=== PATIENT | female | born 1990 | race Caucasian/White ===

== ENCOUNTER 2018-10-27 14:44 | Day surgery (SDC) | payer BC ==
[2018-10-27 16:01] LABS: ABS Eosinophils 0.2 10^3/ul (0-0.6); ABS Lymphocytes 2.7 10^3/ul (1.0-4.8); ABS Monocytes 0.6 10^3/ul (0-0.8); ABS Neutrophils 3.7 10^3/ul (1.5-7.7); Eosinophil % 2.9 %; Hematocrit 33 % (35-47); Lymphocyte % 37.2 %; Mean Corpuscular HGB Conc 33 g/dL (31-36); Mean Corpuscular Hemoglobin 29 pg (27-31); Mean Corpuscular Volume 87 fL (80-97); Mean Platelet Volume 8.7 fL (7.4-10.4); Platelet Count 259 10^3/uL (150-450); Red Blood Count 3.79 10^6 /uL (3.70-4.87); Red Cell Distribution Width 13 % (10-15); White Blood Count 7.2 10^3/uL (3.5-10.8)
[2018-10-27 16:16] LABS: Activated Partial Thrombo Time 31.5 seconds (26.0-38.0); INR 0.95 (0.82-1.09)
[2018-10-27 16:19] LABS: Albumin 4.2 g/dL (3.2-5.2); Albumin/Globulin Ratio 1.6 (1-3); BUN/Creatinine Ratio 15.9 (8-20); C Reactive Protein 10.89 mg/L (<8.01); Calcium 9.2 mg/dL (8.6-10.3); EGFR African American 136.2 (>60); EGFR Non-African American 112.5 (>60); Globulin 2.7 g/dL (2-4); Potassium 3.6 mmol/L (3.5-5.0); Total Bilirubin 0.3 mg/dL (0.2-1.0); Total Protein 6.9 g/dL (6.4-8.9)
[2018-10-27 16:24] LABS: HCG Pregnancy 1296.99 mIU/mL
--- NOTE | 2018-10-27 21:48 | ED ---
GI/ HPI - HPI Summary HPI Summary: This pt is a 28 y/o female [facility] [place] [facility] since . Pt reports she thought she had started her period on 10/08/18 but has been bleeding since then. She has been changing her tampon a couple of times a day. Pt passed blood clots the size of her thumbnail 4 days ago. Pt went to see her airline reservation agent 3 days ago where she had blood work and an exam that resulted normal. She did NOT have a test while there. Pt then began to have severe lower abdominal pain 3 days ago that night. Pt describes lower abd pain as more right than left and feeling distended. She called her airline reservation agent again and was told to take a home test. Pt took a home test today that resulted positive. She has been feeling lightheadedness. Her last bowel movement was yesterday. Denies nausea, vomiting, diarrhea. LNMP: September 07, 2018 and notes she has been regular until this month. Denies control pills or IUD. Hx of ectopic on the right in 2013, pt was [address] Mcfadden, OB, removed part of her fallopian tube. - History of Current Complaint Chief Complaint: EDVaginalBleeding Time Seen by Provider: 10/27/18 21:37 Stated Complaint: BLEEDING PREG RIGHT SIDE PAIN Hx Obtained From: Patient Onset/Duration: Started Weeks Ago, Still Present Timing: Lasting Weeks Current Severity: Moderate Number of Pads per Day: 2 Pain Intensity: 2 Location of Pain: Other - lower abdominal Pain Characteristics: Sharp, Cramping, Aching Associated Signs and Symptoms: Positive: Lightheadedness, Abdominal Pain - lower. Negative: Nausea, Vomiting, Diarrhea Additional Signs & Symptoms: Positive: Vaginal Bleeding, Positive Test - today, First Day of Last Menstral Period - September 07 Aggravating Factor(s): Nothing Alleviating Factor(s): Nothing - Risk Factors Ectopic Risk Factor(s): Prior Ectopic - Allergy/Home Medications Allergies/Adverse Reactions: Allergies Allergy/AdvReac Type Severity Reaction Status Date / Time No Known Allergies Allergy Verified 10/27/18 14:50 PMH/Surg Hx/FS Hx/Imm Hx Endocrine/Hematology History: Denies: Hx Diabetes History: Reports: Other Problems/Disorders - ectopic in 2013 Infectious Disease History: No Infectious Disease History: Denies: Traveled Outside the [place] in Last 30 Days - Family History Known Family History: Negative: Cardiac Disease, Hypertension, Diabetes - Social History Alcohol Use: Rare Substance Use Type: Reports: None Smoking Status (MU): Never Smoked Tobacco Review of Systems Negative: Fever Gastrointestinal: Other - POSITIVE: abd distension Positive: Abdominal Pain. Negative: Vomiting, Diarrhea, Nausea Genitourinary: Other - POSITIVE: vaginal bleeding Neurological: Other - POSITIVE: lightheadedness All Other Systems Reviewed And Are Negative: Yes Physical Exam - Summary Physical Exam Summary: VITAL SIGNS: Reviewed. GENERAL: Patient is a well-developed and nourished female who is lying comfortable in the stretcher. Patient is not in any acute respiratory distress. HEAD AND FACE: No signs of trauma. No ecchymosis, hematomas or skull depressions. No sinus tenderness. EYES: PERRLA, EOMI x 2, No injected conjunctiva, no nystagmus. EARS: Hearing grossly intact. Ear canals and tympanic membranes are within normal limits. MOUTH: Oropharynx within normal limits. NECK: Supple, trachea is midline, no adenopathy, no JVD, no carotid bruit, no c- spine tenderness, neck with full ROM. CHEST: Symmetric, no tenderness at palpation LUNGS: Clear to auscultation bilaterally. No wheezing or crackles. CVS: Regular rate and rhythm, S1 and S2 present, no murmurs or gallops appreciated. ABDOMEN: Soft, mild left pelvic tenderness. No signs of distention. No rebound no guarding, and no masses palpated. Bowel sounds are normal. EXTREMITIES: FROM in all major joints, no edema, no cyanosis or clubbing. NEURO: Alert and oriented x 3. No acute neurological deficits. Speech is normal and follows commands. SKIN: Dry and warm Triage Information Reviewed: Yes Vital Signs On Initial Exam: Initial Vitals Temp Pulse Resp BP Pulse Ox 99.7 F 100 16 138/97 99 10/27/18 14:48 10/27/18 14:48 10/27/18 14:48 10/27/18 14:48 10/27/18 14:48 Vital Signs Reviewed: Yes Diagnostics - Vital Signs Vital Signs Temp Pulse Resp BP Pulse Ox 10/27/18 20:49 98.3 F 77 18 128/74 96 10/27/18 18:12 98.0 F 71 16 112/53 98 06/28/19 16:28 98.5 F 82 16 116/79 99 10/27/18 14:48 99.7 F 100 16 138/97 99 - Laboratory Lab Results: Lab Results 10/27/18 10/27/18 10/27/18 Range/Units 15:51 15:51 15:51 WBC 7.2 (3.5-10.8) 10^3/uL RBC 3.79 (3.70-4.87) 10^6 /uL Hgb 11.0 L (12.0-16.0) g/dL Hct 33 L (35-47) % MCV 87 (80-97) fL MCH 29 (27-31) pg MCHC 33 (31-36) g/dL RDW 13 (10-15) % Plt Count 259 (150-450) 10^3/uL MPV 8.7 (7.4-10.4) fL Neut % (Auto) 50.8 % Lymph % (Auto) 37.2 % Logan % (Auto) 8.6 % Eos % (Auto) 2.9 % Baso % (Auto) 0.5 % Absolute Neuts (auto) 3.7 (1.5-7.7) 10^3/ul Absolute Lymphs (auto) 2.7 (1.0-4.8) 10^3/ul Absolute Monos (auto) 0.6 (0-0.8) 10^3/ul Absolute Eos (auto) 0.2 (0-0.6) 10^3/ul Absolute Basos (auto) 0.0 (0-0.2) 10^3/ul Absolute Nucleated RBC 0.0 10^3/ul Nucleated RBC % 0.0 INR (Anticoag Therapy) (0.82-1.09) APTT (26.0-38.0) seconds Sodium 139 (135-145) mmol/L Potassium 3.6 (3.5-5.0) mmol/L Chloride 107 (101-111) mmol/L Carbon Dioxide 26 (22-32) mmol/L Anion Gap 6 (2-11) mmol/L BUN 10 (6-24) mg/dL Creatinine 0.63 (0.51-0.95) mg/dL Est GFR ( Amer) 136.2 (>60) Est GFR (Non-Af Amer) 112.5 (>60) BUN/Creatinine Ratio 15.9 (8-20) Glucose 94 (70-100) mg/dL Lactic Acid 0.8 (0.5-2.0) mmol/L Calcium 9.2 (8.6-10.3) mg/dL Magnesium 2.0 (1.9-2.7) mg/dL Total Bilirubin 0.30 (0.2-1.0) mg/dL AST 14 (13-39) U/L ALT 10 (7-52) U/L Alkaline Phosphatase 56 (34-104) U/L C-Reactive Protein 10.89 H (<8.01) mg/L Total Protein 6.9 (6.4-8.9) g/dL Albumin 4.2 (3.2-5.2) g/dL Globulin 2.7 (2-4) g/dL Albumin/Globulin Ratio 1.6 (1-3) Amylase 36 (29-103) U/L Lipase 12 (11.0-82.0) U/L Beta HCG, Quant 1296.99 mIU/mL 10/27/18 10/27/18 Range/Units 15:51 21:00 WBC (3.5-10.8) 10^3/uL RBC (3.70-4.87) 10^6 /uL Hgb (12.0-16.0) g/dL Hct (35-47) % MCV (80-97) fL MCH (27-31) pg MCHC (31-36) g/dL RDW (10-15) % Plt Count (150-450) 10^3/uL MPV (7.4-10.4) fL Neut % (Auto) % Lymph % (Auto) % Logan % (Auto) % Eos % (Auto) % Baso % (Auto) % Absolute Neuts (auto) (1.5-7.7) 10^3/ul Absolute Lymphs (auto) (1.0-4.8) 10^3/ul Absolute Monos (auto) (0-0.8) 10^3/ul Absolute Eos (auto) (0-0.6) 10^3/ul Absolute Basos (auto) (0-0.2) 10^3/ul Absolute Nucleated RBC 10^3/ul Nucleated RBC % INR (Anticoag Therapy) 0.95 (0.82-1.09) APTT 31.5 (26.0-38.0) seconds Sodium (135-145) mmol/L Potassium (3.5-5.0) mmol/L Chloride (101-111) mmol/L Carbon Dioxide (22-32) mmol/L Anion Gap (2-11) mmol/L BUN (6-24) mg/dL Creatinine (0.51-0.95) mg/dL Est GFR ( Amer) (>60) Est GFR (Non-Af Amer) (>60) BUN/Creatinine Ratio (8-20) Glucose (70-100) mg/dL Lactic Acid 0.7 (0.5-2.0) mmol/L Calcium (8.6-10.3) mg/dL Magnesium (1.9-2.7) mg/dL Total Bilirubin (0.2-1.0) mg/dL AST (13-39) U/L ALT (7-52) U/L Alkaline Phosphatase (34-104) U/L C-Reactive Protein (<8.01) mg/L Total Protein (6.4-8.9) g/dL Albumin (3.2-5.2) g/dL Globulin (2-4) g/dL Albumin/Globulin Ratio (1-3) Amylase (29-103) U/L Lipase (11.0-82.0) U/L Beta HCG, Quant mIU/mL Result Diagrams: 10/27/18 15:51 10/27/18 15:51 Lab Statement: Any lab studies that have been ordered have been reviewed, and results considered in the medical decision making process. - Ultrasound No standard instances Ultrasound Interpretation Completed By: Radiologist Summary of Ultrasound Findings: Tranvaginal US IMPRESSION: 1. No evidence of an IUP. 2. Complex mass measuring 2 x 4 cm adjacent to left ovary and moderate amount of echo filled fluid in the cul-de-sac worrisome for ruptured ectopic. Dr. Moise has reviewed this report. Re-Evaluation - Re-Evaluation First Eval Re-Evaluation Time: 23:49 Comment: Reviewed US results with pt. Pt is aware Dr. Ferris, OB, will come see her. GIGU Course/Dx - Course Assessment/Plan: Pt is a 28 y/o female [facility] [place] [facility] bleeding since 10/08/18. Pt reports she thought she had started her period. She has been changing her tampon a couple of times a day. Positive home test today. LMP: September 07, 2018. Hx of ectopic in 2013. Lab results remarkable for CRP of 10.89, beta HCG of 1296.99. Transvaginal US shows 1. No evidence of an IUP. 2. Complex mass measuring 2 x 4 cm adjacent to left ovary and moderate amount of echo filled fluid in the cul-de-sac worrisome for ruptured ectopic. Discussed the case with Dr. Ferris, OB, who will come see the pt in the ED. Dr. Ferris will admit the pt to the OR for diagnosis of ectopic on the left. - Diagnoses Provider Diagnoses: Ectopic - Physician Notifications Discussed Care Of Patient With: Marcie Ferris Time Discussed With Above Provider: 23:47 Instructed by Provider To: Other - Discussed the case with Dr. Ferris, OB, who will come see the pt in the ED. Discharge - Sign-Out/Discharge Documenting (check all that apply): Patient Departure - Admit to OR by Dr. Ferris Patient Received Moderate/Deep Sedation with Procedure: No - Discharge Plan Condition: Stable Disposition: ADMITTED TO [facility] Referrals: Nena Gregg MD [Primary Care Provider] - - Attestation Statements Document Initiated by Scribe: Yes Documenting Scribe: Sona Valdez Provider For Whom Scribe is Documenting (Include Credential): German Moise MD Scribe Attestation: Sona Cortez, scribed for German Moise MD on 10/28/18 at 0102. Status of Scribe Document: Ready
[2018-10-27 22:12] LABS: Urine Appearance Clear; Urine Bilirubin Negative (Negative); Urine Blood Negative (Negative); Urine Color Yellow; Urine Glucose Negative (Negative); Urine Ketones 2+ (Negative); Urine Nitrite Negative (Negative); Urine Protein Negative (Negative); Urine Specific Gravity 1.023 (1.010-1.030); Urine Urobilinogen Negative (Negative)
[2018-10-27] MEDS ORDERED: Lactated Ringers 1000 ML Bag* 1,000 ML IV SCH (23:00)
[2018-10-28] MEDS ORDERED: Bupivacaine 0.5% W/EPI SDV* 30 ML VIAL ONE (01:30)
[2018-10-28] MEDS ORDERED: ceFOXitin 2 GM IVPREMIX* 2 GM/50 ML BAG ONE (01:31)
[2018-10-28] MEDS ORDERED: fentaNYL* 50 MCG/ML 2 ML VIAL (100 MCG VIAL) ONE (01:49)
[2018-10-28] MEDS ORDERED: Midazolam* 1 MG/ML 2 ML VIAL (2 MG) ONE (01:49)
[2018-10-28] MEDS ORDERED: Lidocaine 2% PF * 5 ML VIAL ONE (02:05)
[2018-10-28] MEDS ORDERED: Succinylcholine* 20 MG/ML 10 ML VIAL ONE (02:05)
[2018-10-28] MEDS ORDERED: Dexamethasone IV* 4 MG/ML 1 ML (4 MG) ONE (02:05)
[2018-10-28] MEDS ORDERED: Propofol* 10 MG/ML 20 ML BTL ONE (02:05)
[2018-10-28] MEDS ORDERED: Ondansetron INJ* 2 MG/ML VIAL ONE (02:05)
[2018-10-28] MEDS ORDERED: Ketorolac INJ* 30 MG/ML 1 ML VIAL ONE (03:00)
[2018-10-28 04:04] VITALS: BP 117/80
--- NOTE | 2018-10-28 05:26 | OP ---
DATE OF OPERATION: 10/28/18 - [facility] DATE OF : 89 SURGEON: Marcie Ferris MD. PROCESS STRIPPER: Melvin Henry MD. ANESTHESIOLOGIST: Dr. Beatty ANESTHESIA: General endotracheal with local. PRE-OP DIAGNOSIS: Left ectopic . POST-OP DIAGNOSIS: Left ectopic . OPERATIVE PROCEDURE: Laparoscopic left salpingectomy. ESTIMATED BLOOD LOSS: Minimal intraoperatively but approximately 300 cc of blood was in the intraabdominal cavity from ruptured ectopic. URINE OUTPUT: 125 cc of clear yellow urine. FLUIDS: 900 cc of crystalloid. FINDINGS: Revealed a hemoperitoneum, normal-appearing liver, normal-appearing bowel, normal-appearing appendix, normal-appearing right and left ovaries, normal-appearing uterus, normal-appearing posterior and anterior cul-de-sac. Left fallopian tube dilated, three-quarters of the tube was dilated and distorted from the ruptured ectopic. COMPLICATIONS: None apparent. DISPOSITION: Stable to recovery room. DESCRIPTION OF PROCEDURE: The patient was placed in dorsal lithotomy position. Legs were placed in the universal Richard stirrups. SCDs were placed. The abdomen was prepped and draped in sterile standard fashion. The patient was identified with universal protocol for correct procedure, position, and patient. A self catheter was placed for drainage with clear yellow urine 100 cc. A sterile speculum was then inserted. The cervix was visualized, grasped on the anterior lip and a Hulka clamp was placed. Single-tooth tenaculum removed and sterile speculum removed. At that point, attention was then focused on the abdominal portion of the case. The infraumbilical site was infused with approximately 8 cc of 0.5% bupivacaine with epi. An incision was made with an 11 -scalpel blade. Fascia was grasped with Michel and incised with scalpel, and the peritoneum was then entered sharply with Metzenbaum scissors. A blunt Jared trocar 10/12 was placed through this port, insufflated, confirming excellent intraperitoneal placement of the port and pneumoperitoneum was then created. A 5-mm incision was then approached 2 fingerbreadths above the pubic symphysis and another 6 cc of bupivacaine 0.5% with epi was infused suprapubically at the incision site. Incision was made with 11-scalpel blade and a 5-mm port was placed under direct visualization, and this process was repeated on the left and inferiorly to the umbilical port. At that point, the pelvis was visualized confirming the presence of a left ruptured ectopic involving three-quarters of the length of the left fallopian tube. The decision at that point was to use a LigaSure. The LigaSure was placed across the base of the left mesosalpinx for complete obliteration of vascular supply and the specimen was placed in the anterior section of cul-de-sac. Camera was switched to 5-mm camera and through the 10-mm port, an Endobag was placed for removal of the left ectopic, which was removed through the 10-mm port under direct visualization with an Endobag. The mesosalpinx pedicle was noted to be hemostatic. Copious lavage was performed. The bowel was noted to have a normal appearance, as well as appendix was noted to have a normal appearance; however, it was retrocecal in location. Both ovaries had normal appearance, as did the uterus. The pneumoperitoneum was then released and the 5-mm trocar and trocar sheaths were removed under direct visualization. The 10-mm port was then removed. The fascia was grasped with Kochers and the fascia itself at the umbilicus was re-approximated using 0-Vicryl in a running fashion for complete closure of the facia and the skin was then reapproximated with 4-0 Monocryl in a subcuticular fashion, both at the umbilicus and at the two 5-mm ports. Mastisol and Steri-Strips were applied. Hulka clamp was removed. All sponge, instrument, and blade counts were correct at end of the case. The patient tolerated the procedure well and went to the recovery room in stable condition. [id number]/[facility] #: [id number] [facility]
== END 2018-10-28 02:32 | disposition home or self-care (01) ==
LOC: ED 14:44 → OR 10-28 02:32
PROVIDERS: ATTEND Obstetrics & Gynecology
DX: O00.102 Left tubal pregnancy without intrauterine pregnancy (principal); N93.9 Abnormal uterine and vaginal bleeding, unspecified; R10.2 Pelvic and perineal pain; N94.9 Unspecified condition associated with female genital organs and menstrual cycle; R42 Dizziness and giddiness
CPT/HCPCS: 36415; 76817; 80053; 81003; 82150; 83605; 83690; 83735; 84702; 85025; 85610; 85730; 86140; 86850; 86900; 86901; 88305; 99283; J0330; J0694; J1100; J1885; J2250; J2405; J2704; J3010